=== PATIENT | female | born 1980 | race Caucasian/White ===

== ENCOUNTER → 2017-08-28 | Outpatient (REF) | payer OTHER | LOC: M LAB REF 19:24 | DX: J02.9 Acute pharyngitis, unspecified (principal) | CPT/HCPCS: 87081 ==

== ENCOUNTER → 2018-02-19 | Outpatient (REF) | payer OTHER | LOC: M SFHCLERA 20:14 | DX: N39.0 Urinary tract infection, site not specified (principal) ==

== ENCOUNTER → 2019-06-24 | Outpatient (REF) | payer OTHER ==
[2019-06-24 19:01] LABS: HEMATOCRIT 39.4 % (36.0-47.0); HEMOGLOBIN 13.3 g/dl (12.0-15.5); MEAN CORPUSCULAR HEMOGLOBIN 32.1 pg (27.0-33.0); MEAN CORPUSCULAR HGB CONC 33.8 g/dl (32.0-36.5); MEAN CORPUSCULAR VOLUME 95.2 fl (80.0-96.0); PLATELET COUNT, AUTOMATED 267 10^3/uL (150-450); RED BLOOD COUNT 4.14 10^6/uL (4.00-5.40); WHITE BLOOD COUNT 9.4 10^3/uL (4.0-10.0)
[2019-06-24 19:53] LABS: HCG, SERUM QUANTITATIVE 92214 MIU/ML
[2019-06-25 11:28] LABS: RUBELLA IgG QUALITATIVE IMMUNE (IMMUNE)
[2019-06-25 11:57] LABS: HEPATITIS C VIRUS ABY INDEX < 0.0 INDEX (<0.8); HIV 1&2 SCREEN CENTAUR NEGATIVE (NEGATIVE)
== END ==
LOC: M LAB REF 17:02
PROVIDERS: ATTEND Obstetrics & Gynecology
DX: O36.80X0 Pregnancy with inconclusive fetal viability, not applicable or unspecified (principal)

== ENCOUNTER → 2019-11-03 | Outpatient (CLI) | payer OTHER ==
[~2019-11-03] MED LIST: PERCOCET PO; PNV-TAB2 PO; TUMS750C22 PO
[2019-11-03 16:34] LABS: HEMATOCRIT 35.3 % (36.0-47.0); HEMOGLOBIN 11.5 g/dl (12.0-15.5); MEAN CORPUSCULAR HEMOGLOBIN 31.3 pg (27.0-33.0); MEAN CORPUSCULAR HGB CONC 32.6 g/dl (32.0-36.5); MEAN CORPUSCULAR VOLUME 95.9 fl (80.0-96.0); PLATELET COUNT, AUTOMATED 223 10^3/uL (150-450); RED BLOOD COUNT 3.68 10^6/uL (4.00-5.40)
== END ==
LOC: M WUC 11:52
PROVIDERS: ATTEND Obstetrics & Gynecology
DX: Z34.02 Encounter for supervision of normal first pregnancy, second trimester (principal); Z36.89 Encounter for other specified antenatal screening

== ENCOUNTER 2020-01-22 16:09 | Inpatient (IN) | payer OTHER ==
[2020-01-22] VITALS (13 sets, daily range): BP systolic 131–157; BP diastolic 77–105
[~2020-01-22] VITALS: Ht 157.5 cm; Wt 127.1 kg
[2020-01-22] MEDS ORDERED: TUMS750C22 PO (16:35)
[2020-01-22] MEDS ORDERED: PNV-TAB2 PO (16:35)
[2020-01-22] MEDS ORDERED: LACTATED RINGER'S 1000 ML IV ONE (17:00)
[2020-01-22] MEDS: miSOPROStol 50 MCG 1/2 TAB (S0191) PO SCH ×2 (17:07→21:06)
[2020-01-22] MEDS: LR 1,000 ML IV SCH (17:07)
[2020-01-22 17:14] LABS: HEMATOCRIT 38.5 % (36.0-47.0); HEMOGLOBIN 12.9 g/dl (12.0-15.5); MEAN CORPUSCULAR HEMOGLOBIN 31.3 pg (27.0-33.0); MEAN CORPUSCULAR HGB CONC 33.5 g/dl (32.0-36.5); MEAN CORPUSCULAR VOLUME 93.4 fl (80.0-96.0); PLATELET COUNT, AUTOMATED 237 10^3/uL (150-450); RED BLOOD COUNT 4.12 10^6/uL (4.00-5.40); WHITE BLOOD COUNT 10.4 10^3/uL (4.0-10.0)
[2020-01-22 17:33] LABS: ALT/SGPT 14 U/L (12-78); BILIRUBIN,TOTAL 0.2 MG/DL (0.2-1.0); CREATININE FOR GFR 0.72 MG/DL (0.55-1.30); GLOMERULAR FILTRATION RATE > 60.0 (>60); LDH LACTATE DEHYDROGENASE 184 U/L (84-246); URIC ACID 4.5 MG/DL (2.6-6.0)
[2020-01-22 18:42] LABS: CREATININE,RANDOM URINE 54.4 MG/DL; TOTAL PROTEIN,RANDOM URINE 20.2 MG/DL (0.0-12.0)
[2020-01-23] VITALS (12 sets, daily range): BP systolic 108–145; BP diastolic 57–92
[2020-01-23] MEDS: LR 1,000 ML IV SCH (00:38)
[2020-01-23] MEDS: miSOPROStol 50 MCG 1/2 TAB (S0191) PO SCH (01:11)
[2020-01-23 06:10] LABS: HEMOGLOBIN 13.2 g/dl (12.0-15.5); MEAN CORPUSCULAR HEMOGLOBIN 31.6 pg (27.0-33.0); MEAN CORPUSCULAR VOLUME 95.7 fl (80.0-96.0); PLATELET COUNT, AUTOMATED 201 10^3/uL (150-450); RED BLOOD COUNT 4.18 10^6/uL (4.00-5.40)
[2020-01-23] MEDS ORDERED: OXYTOCIN DRIP 30 UNITS in IV 1 EA IV SCH (06:15)
[2020-01-23] MEDS ORDERED: MOM 30ML SUSPENSION UDC PO PRN (06:15)
[2020-01-23] MEDS ORDERED: MEASLES,MUMPS,RUBELLA VACCINE INJ (MMR-II) (90707) SC SCH (06:15)
[2020-01-23] MEDS ORDERED: PERCOCET 5MG/325MG TAB PO PRN ×3 (06:15→07:45)
[2020-01-23] MEDS ORDERED: ceFAZolin SOD 2 GM in IV 1 EA IV ONE (06:15)
[2020-01-23] MEDS ORDERED: ONDANSETRON 4 MG ORAL DISINTEGRATING TAB PO PRN (06:15)
[2020-01-23] MEDS ORDERED: BICITRA 30ML SOLN UDC PO ONE (06:15)
[2020-01-23] MEDS ORDERED: RHOGAM 300 MCG (1500 IU) INJ (J2790) IM SCH (06:15)
[2020-01-23] MEDS ORDERED: MORPHINE PRES-FREE INJ 10 MG/10 ML VIAL (J2274) As Ordered ONE (06:20)
[2020-01-23] MEDS ORDERED: OXYTOCIN INJ 10 UNITS/ML VIAL (J2590) As Ordered ONE (06:22)
[2020-01-23 06:39] LABS: ALT/SGPT 15 U/L (12-78); BILIRUBIN,TOTAL 0.4 MG/DL (0.2-1.0); CREATININE FOR GFR 0.73 MG/DL (0.55-1.30); GLOMERULAR FILTRATION RATE > 60.0 (>60); LDH LACTATE DEHYDROGENASE 158 U/L (84-246); URIC ACID 4.6 MG/DL (2.6-6.0)
[2020-01-23] MEDS ORDERED: ONDANSETRON 4MG/2ML VIAL IV PRN ×2 (06:49→07:45)
[2020-01-23] MEDS ORDERED: METOCLOPRAMIDE INJ 10MG/2ML VIAL (J2765 PER 1) IV PRN ×2 (06:49→07:45)
[2020-01-23] MEDS ORDERED: diphenhydrAMINE 50MG/ML VIAL (J1200) IV PRN (06:49)
[2020-01-23] MEDS ORDERED: NALBUPHINE HCL 10 MG/ML AMP (J2300) IV PRN (06:49)
[2020-01-23] MEDS ORDERED: NALOXONE INJ 0.4MG/1ML VIAL (J2310 PER 1MG) IV PRN ×2 (06:49)
[2020-01-23] MEDS ORDERED: KETOROLAC 60MG 2ML VIAL As Ordered ONE (07:09)
[2020-01-23] MEDS ORDERED: ONDANSETRON 4MG/2ML VIAL As Ordered ONE (07:09)
[2020-01-23] MEDS ORDERED: ePHEDrine SULFATE 25 MG/5 ML(5MG/ML) SYRINGE As Ordered ONE (07:12)
[2020-01-23] MEDS ORDERED: PHENYLephrine HCL 500 MCG/5 ML (100MCG/ML) SYRINGE (J2370) As Ordered ONE (07:12)
[2020-01-23 07:20] LABS: CORD GAS ABE A 1.1; CORD GAS HCO3 A 29.5 MEQ/L; CORD GAS PCO2 A 64.3 mmHg; CORD GAS PH A 7.28 UNITS; CORD GAS PO2 A 16.7 mmHg; CORD GAS SBC A 23.8 MEQ/L; CORD GAS TCO2 A 31.5 MEQ/L
[2020-01-23 07:21] LABS: CORD GAS ABE V -2.7; CORD GAS HCO3 V 23.9 MEQ/L; CORD GAS O2 SAT V 49.6 %; CORD GAS PCO2 V 48.1 mmHg; CORD GAS PH V 7.314 UNITS; CORD GAS PO2 V 21.6 mmHg; CORD GAS SBC V 21.1 MEQ/L; CORD GAS TCO2 V 25.4 MEQ/L
[2020-01-23] MEDS ORDERED: PERCOCET PO (07:38)
[2020-01-23] MEDS ORDERED: fentaNYL 100 MCG/2 ML INJECTION (J3010) IV PRN (07:45)
[2020-01-23] MEDS ORDERED: LR 1,000 ML IV SCH (07:45)
[2020-01-23] MEDS ORDERED: MEPERIDINE INJ 25 MG/ML VIAL (J2175) IV PRN (07:45)
[2020-01-23] MEDS: PRENATAL VITAMINS CHEWABLE TABLET PO SCH (10:20)
[2020-01-23] MEDS: DOCUSATE SODIUM 100 MG CAP PO SCH ×2 (10:21→20:07)
[2020-01-24 02:00] VITALS: BP 123/56
[2020-01-24] MEDS: ACETAMINOPHEN 500 MG TAB PO PRN ×2 (05:34→18:24)
[2020-01-24 06:00] VITALS: BP 123/61
[2020-01-24 07:33] LABS: HEMATOCRIT 33.4 % (36.0-47.0); MEAN CORPUSCULAR HEMOGLOBIN 31.2 pg (27.0-33.0); MEAN CORPUSCULAR HGB CONC 32.3 g/dl (32.0-36.5); MEAN CORPUSCULAR VOLUME 96.5 fl (80.0-96.0); PLATELET COUNT, AUTOMATED 180 10^3/uL (150-450); RED BLOOD COUNT 3.46 10^6/uL (4.00-5.40); WHITE BLOOD COUNT 9.6 10^3/uL (4.0-10.0)
[2020-01-24 07:34] LABS: HEMOGLOBIN 10.8 g/dl (12.0-15.5)
[2020-01-24] MEDS: DOCUSATE SODIUM 100 MG CAP PO SCH ×2 (09:39→20:08)
[2020-01-24] MEDS: PRENATAL VITAMINS CHEWABLE TABLET PO SCH (09:39)
[2020-01-24 10:00] VITALS: BP 132/75
[2020-01-24] MEDS: IBUPROFEN 800 MG TAB PO SCH ×2 (12:21→20:08)
[2020-01-24 14:00] VITALS: BP 128/68
--- NOTE | 2020-01-24 14:15 | IPNPDOC ---
Progress Note Date of Service: Jan 24, 2020 Day#: 1 Progress Note SUBJECT: Doing well without complaints. Ambulating, voiding and pain is well- controlled. Reports minimal lochia. OBJECTIVE: VITAL SIGNS: Within normal limits, afebrile. Alert and oriented times three. Abdomen: Fundus firm at U-2. Soft, NTTP. Incision: dressed Ext: neg calf tenderness. ASSESSMENT: /postoperative day #1 status post delivery. Recovering in stable condition. PLAN: 1. Continue routine /postoperative care 2. Discharge plans for tomorrow VS, I&O, 24H, Fishbone Vital Signs/I&O Vital Signs Date Time Temp Pulse Resp B/P (MAP) Pulse Ox O2 Delivery O2 Flow Rate FiO2 01/24/20 10:00 98.1 96 18 132/75 (94) 96 Room Air I&O- Last 24 Hours up to 6 AM 01/24/20 06:00 Intake Total 100 ml Output Total 1825 ml Balance -1725 ml Laboratory Data 24H LABS Laboratory Tests 2 01/24/20 06:50: Nucleated Red Blood Cells % (auto) 0.0 CBC/BMP Laboratory Tests 01/24/20 06:50 EVER BOYD MD. Jan 24, 2020 14:15
[2020-01-24 18:00] VITALS: BP 160/75
--- NOTE | 2020-01-24 21:18 | HPE ---
DATE OF ADMISSION: 01/22/2020 HISTORY OF PRESENT ILLNESS: Tammy is a 39-year-old female, 1, para 0, who was admitted at 39 and 3/7 weeks gestation, after presenting to the office with severely elevated blood pressure. She was found to have blood, as well as protein in her urine. She is being admitted for preeclampsia. Upon admission, no bleeding, no leakage of fluid, no blurred vision or epigastric pain. She does have significant lower extremity edema, 2+ pitting. Her records were reviewed, which were essentially unremarkable. LABORATORY: Blood type is B positive. Rubella immune. Hepatitis negative. HIV negative. GC and chlamydia negative. One-hour sugar testing was within normal limits. Her GBS is negative. PAST MEDICAL HISTORY: Asthma. PAST SURGICAL HISTORY: Denies. SOCIAL HISTORY: She is , denies any alcohol, or drugs, or cigarette smoking. REVIEW OF SYSTEMS: Unremarkable. MEDICATIONS: vitamins. ALLERGIES: No known drug allergy. PHYSICAL EXAMINATION: GENERAL: Obese female in no acute distress. ABDOMEN: Soft, nontender, non-distended, gravid. EXTREMITIES: No clubbing, cyanosis, or edema. VAGINAL EXAM: Closed, thickened, posterior, with fetus at -3 station in a vertex position. DATA: Tracing reviewed. Category I tracing. Contraction irregular. ASSESSMENT: 1. Intrauterine at 39 and 3/7 weeks gestation. 2. Preeclampsia, cannot rule out severe preeclampsia. 3. GBS negative. PLAN: 1. Admit patient to Labor and Delivery. 2. Labs sent. 3. Induction process discussed with the patient. We will proceed with Cytotec induction, as Cervidil is not available through our hospital. Risks and benefits discussed, as well as the disease process of preeclampsia. All questions were answered. REJID
[2020-01-24 22:00] VITALS: BP_SYST 156; BP_SYST 165; BP_DIAS 92; BP_DIAS 96
[2020-01-25 02:00] VITALS: BP 151/86
[2020-01-25] MEDS: IBUPROFEN 800 MG TAB PO SCH ×2 (05:29→11:13)
[2020-01-25 06:00] VITALS: BP_SYST 121; BP_SYST 145; BP_DIAS 76; BP_DIAS 92
[2020-01-25] MEDS: PRENATAL VITAMINS CHEWABLE TABLET PO SCH (08:27)
[2020-01-25] MEDS: DOCUSATE SODIUM 100 MG CAP PO SCH (08:27)
--- NOTE | 2020-02-09 11:10 | RO ---
DATE OF OPERATION: 01/23/2020 INDICATIONS: Tammy is 39-year-old female 1, para 0, who is admitted at 39 and 3/7 weeks gestation with preeclampsia for induction. She underwent two Cytotec, with no significant changes on her cervix. Given that she was remote from her delivery and her preeclampsia, we did discuss the possibility of delivery via section and the patient requested to proceed with delivery via section. PRE-OPERATIVE DIAGNOSES: 1. Term . 2. Preeclampsia. 3. Remote from delivery. 4. Failed induction. POST-OPERATIVE DIAGNOSES: 1. Term . 2. Preeclampsia. 3. Remote from delivery. 4. Failed induction. 5. macrosomia. PROCEDURE: Primary low transverse section via Pfannenstiel incision. ANESTHESIA: Spinal. SURGEON: Nahum Freitas D.O. RADIATION OFFICER: Dr. Abernathy. COMPLICATIONS: None. ESTIMATED BLOOD LOSS: 600 mL. FINDINGS: * Live female in occiput transverse position. * 9 and 9. * weight 9 pounds 5 ounces. * Normal-appearing tubes and ovaries. DESCRIPTION OF PROCEDURE: After obtaining informed consent, the patient was taken to the operating room where spinal anesthetic was found to be adequate. She was then draped and prepped in the usual sterile fashion in the supine position. With the help of Dr. Abernathy, a Pfannenstiel incision was made. The incision was carried down to the fascia. The fascia was incised in the midline fashion, which was carried through laterally. The superior aspect of the fascia was then grasped with two Dhruv clamps, tented off, and dissected off the rectus muscles sharply. The inferior aspect was dissected off in a similar fashion. Rectus muscles were in the midline fashion. The peritoneum was identified and peritoneal cavity entered bluntly. Superior and inferior dissection of the peritoneum was then done with good visualization of the bladder. At this point, a Mobius skin retractor was placed. A low transverse uterine incision was made. The infant was delivered in an atraumatic fashion. The nose and mouth was bulb suctioned. Cord doubly clamped and cut. The was handed over to the awaiting warmer. The cord blood and cord gas was sent. Placenta removed manually. Uterus cleared of all clots and debris. Uterine incision was then repaired in two separate layers of 0-Vicryl sutures. All superficial bleeders coagulated. The skin was reapproximated in a subcuticular fashion using 3-0 Vicryl on a Ytson needle. Steri-Strips were placed. Patient tolerated the procedure well. She was then transferred to the recovery room in stable condition. MIHIR
== END 2020-01-25 12:35 | disposition home or self-care (01) | DRG 788 ==
LOC: M LDO 16:09 → M LDI 16:20 → M OBS 01-23 08:56
PROVIDERS: ADMIT Obstetrics & Gynecology; ATTEND Obstetrics & Gynecology
PROC: 3E0P7GC Introduction of Other Therapeutic Substance into Female Reproductive, Via Natural or Artificial Opening (ICD-10-PCS; 2020-01-22)
PROC: 10D00Z1 Extraction of Products of Conception, Low, Open Approach (ICD-10-PCS; principal; 2020-01-23 07:00)
DX: O14.14 Severe pre-eclampsia complicating childbirth (principal); Z3A.39 39 weeks gestation of pregnancy; O61.0 Failed medical induction of labor; Z37.0 Single live birth

== ENCOUNTER → 2022-01-06 | Outpatient (CLI) | payer OTHER | LOC: M WHC 07:44 | PROVIDERS: ATTEND Obstetrics & Gynecology | DX: Z12.31 Encounter for screening mammogram for malignant neoplasm of breast (principal); R92.2 Inconclusive mammogram ==

== ENCOUNTER → 2022-02-14 | Outpatient (CLI) | payer OTHER | LOC: M WHC 08:54 | PROVIDERS: ATTEND Obstetrics & Gynecology | DX: R92.8 Other abnormal and inconclusive findings on diagnostic imaging of breast (principal) | CPT/HCPCS: 76642; 77065; G0279 ==

== ENCOUNTER 2022-07-17 10:42 | Emergency (ER) | payer OTHER ==
[~2022-07-17] VITALS: Ht 157.5 cm; Wt 95.5 kg
[2022-07-17] MEDS ORDERED: MORPHINE 4 MG/ML 1ML VIAL IV ONE (11:25)
[2022-07-17] MEDS ORDERED: ASPIRIN 81MG CHEW TABLET PO ONE (11:25)
[2022-07-17] MEDS ORDERED: NS 1,000 ML IV ONE (11:25)
[2022-07-17 11:50] LABS: BASO % 0.2 % (0.0-1.0); EOS % 0.5 % (0.0-3.0); HEMATOCRIT 44.6 % (36.0-47.0); HEMOGLOBIN 14.8 g/dl (12.0-15.5); LYMPH # 1.7 10^3/uL (1.5-5.0); LYMPH % 18.6 % (24.0-44.0); MEAN CORPUSCULAR HEMOGLOBIN 31.3 pg (27.0-33.0); MEAN CORPUSCULAR HGB CONC 33.2 g/dl (32.0-36.5); MEAN CORPUSCULAR VOLUME 94.3 fl (80.0-96.0); MONO # 0.4 10^3/uL (0.0-0.8); MONO % 4.6 % (2.0-8.0); NEUTROPHILS # 6.7 10^3/uL (1.5-8.5); NEUTROPHILS % 75.8 % (36.0-66.0); PLATELET COUNT, AUTOMATED 275 10^3/uL (150-450); RED BLOOD COUNT 4.73 10^6/uL (4.00-5.40); WHITE BLOOD COUNT 8.9 10^3/uL (4.0-10.0)
[2022-07-17 12:02] LABS: INR 0.95; PROTHROMBIN TIME 12.9 SECONDS (12.5-14.5)
[2022-07-17 12:03] LABS: PARTIAL THROMBOPLASTIN TIME 25.2 SECONDS (24.8-34.2)
[2022-07-17 12:21] LABS: LIPASE 30 U/L (12-53)
[2022-07-17 12:23] LABS: CPK CREATINE PHOSPHOKINASE 143 U/L (34-145)
[2022-07-17 12:27] LABS: ALKALINE PHOSPHATASE 63 U/L (46-116); ALT/SGPT 24 U/L (7.0-40); AST/SGOT 19 U/L (<34); BILIRUBIN,DIRECT 0.2 MG/DL (<0.4); BILIRUBIN,TOTAL 0.6 MG/DL (0.3-1.2); BLOOD UREA NITROGEN 13 MG/DL (9-23); CALCIUM LEVEL 8.7 MG/DL (8.5-10.1); CARBON DIOXIDE LEVEL 27 MMOL/L (20-31); CHLORIDE LEVEL 104 MMOL/L (98-107); CREATININE FOR GFR 0.76 MG/DL (0.55-1.30); FREE T4 1.11 NG/DL (0.89-1.76); GLOMERULAR FILTRATION RATE > 60.0 (>58); GLUCOSE, FASTING 109 MG/DL (60-100); MB/CK RELATIVE INDEX 0.69 (< OR =4); POTASSIUM SERUM 3.8 MMOL/L (3.5-5.1); SODIUM LEVEL 138 MMOL/L (136-145); THYROID STIMULATING HORMONE 1.917 uIU/ML (0.55-4.78)
[2022-07-17] MEDS ORDERED: ISOVUE-370 76% 100ML VIAL As Ordered ONE (12:42)
[2022-07-17 13:30] VITALS: BP 146/80
[2022-07-17 14:23] LABS: CK-MB VALUE MASS < 1.0 NG/ML (<3.6)
[2022-07-17 14:27] LABS: CPK CREATINE PHOSPHOKINASE 118 U/L (34-145); MB/CK RELATIVE INDEX 0.84 (< OR =4)
== END 2022-07-17 15:03 | disposition home or self-care (01) ==
LOC: M ED 10:42
DX: R07.89 Other chest pain (principal); I10 Essential (primary) hypertension; J45.909 Unspecified asthma, uncomplicated
CPT/HCPCS: 71045; 71275; 80048; 80076; 82550; 82553; 83690; 84439; 84443; 84484; 84702; 85025; 85610; 85730; 93005; 93041; 94760; 96374; 99285; J2270

== ENCOUNTER → 2022-09-04 | Outpatient (CLI) | payer OTHER | LOC: M WUC 12:29 | PROVIDERS: ATTEND Physician Assistant | DX: S83.412A Sprain of medial collateral ligament of left knee, initial encounter (principal); X58.XXXA Exposure to other specified factors, initial encounter; Y92.89 Other specified places as the place of occurrence of the external cause; Y93.89 Activity, other specified; Y99.8 Other external cause status ==

== ENCOUNTER → 2024-02-08 | Outpatient (CLI) | payer OTHER | LOC: M WHC 09:24 | PROVIDERS: ATTEND Obstetrics & Gynecology | DX: Z12.31 Encounter for screening mammogram for malignant neoplasm of breast (principal) ==

== ENCOUNTER 2024-05-29 08:40 | Emergency (ER) | payer OTHER ==
[~2024-05-29] VITALS: Ht 157.5 cm; Wt 104.5 kg
[2024-05-29] MEDS ORDERED: TIRZ2.5P3 (08:52)
[2024-05-29] MEDS: ONDANSETRON 4MG ORAL DISINTEGRATING TAB PO ONE ×2 (11:35→13:16)
[2024-05-29] MEDS: AUGMENTIN 875 MG TAB PO ONE (11:35)
[2024-05-29] MEDS: IBUPROFEN 800 MG TAB PO ONE (11:38)
[2024-05-29] MEDS: LIDOCAINE 2% MDV 20ML VIAL SC ONE (11:39)
[2024-05-29] MEDS: MORPHINE 2 MG/ML 1ML VIAL IM ONE (13:15)
[2024-05-29] MEDS ORDERED: AMOX875T2 PO (14:12)
[2024-05-29 14:27] VITALS: BP 127/78; TEMP 99.2; O2SAT 100
== END 2024-05-29 14:37 | disposition home or self-care (01) ==
LOC: M ED 08:40
DX: S61.411A Laceration without foreign body of right hand, initial encounter (principal); S61.412A Laceration without foreign body of left hand, initial encounter; W54.0XXA Bitten by dog, initial encounter; J45.909 Unspecified asthma, uncomplicated; Z79.2 Long term (current) use of antibiotics; Z79.899 Other long term (current) drug therapy; Y92.9 Unspecified place or not applicable; Y93.89 Activity, other specified; Y99.9 Unspecified external cause status

== ENCOUNTER → 2024-08-19 | Outpatient (CLI) | payer OTHER ==
[~2024-08-19] MED LIST changes: +AMOX875T2 PO; +TIRZ2.5P3
== END ==
LOC: M WHC 07:30
PROVIDERS: ATTEND Obstetrics & Gynecology
DX: N92.1 Excessive and frequent menstruation with irregular cycle (principal)

== ENCOUNTER → 2025-01-07 | Outpatient (CLI) | payer OTHER ==
[~2025-01-07] MED LIST changes: +ALBU90AE2 IH; +PERC5TAB12 PO; +RA N1TAB PO; +THERTAB52 PO; +TIRZ12.53 SQ; +VITA100093 PO
== END ==
LOC: M SOG 06:59
PROVIDERS: ATTEND Neuromusculoskeletal Medicine, Sports Medicine
DX: M25.562 Pain in left knee (principal); M17.12 Unilateral primary osteoarthritis, left knee

== ENCOUNTER → 2025-01-15 | Outpatient (CLI) | payer OTHER | LOC: M PLARAD 07:53 | PROVIDERS: ATTEND Neuromusculoskeletal Medicine, Sports Medicine | DX: M25.562 Pain in left knee (principal); M22.42 Chondromalacia patellae, left knee; M25.462 Effusion, left knee; R60.0 Localized edema; S83.512A Sprain of anterior cruciate ligament of left knee, initial encounter; S83.412A Sprain of medial collateral ligament of left knee, initial encounter; X58.XXXA Exposure to other specified factors, initial encounter; Y92.9 Unspecified place or not applicable; Y93.9 Activity, unspecified; Y99.9 Unspecified external cause status ==

== ENCOUNTER → 2025-02-09 | Outpatient (CLI) | payer OTHER | LOC: M WHC 07:38 | PROVIDERS: ATTEND Obstetrics & Gynecology | DX: Z12.31 Encounter for screening mammogram for malignant neoplasm of breast (principal) ==